=== PATIENT | female | born 1965 | race Caucasian/White ===

== ENCOUNTER 2020-03-12 13:19 | Outpatient (CLI) | payer OTHER, SELFPAY ==
--- NOTE | ~2020-03-12 | US_ITS ---
EXAMINATION: US venous doppler LE RT DATE: 03/12/2020 13:58 INDICATION: Right lower limb redness and swelling TECHNIQUE: Ellington scale images without and with compression and Doppler images of the right lower extre mity veins were obtained. COMPARISON: 07/22/2015 FINDINGS: The right common femoral vein, profunda femoral vein, femoral vein, popliteal vein, peronea l trunk, posterior tibial veins, and greater saphenous vein are patent. IMPRESSION: 1. Patent right lower extremity veins. No evidence of deep venous thrombosis. Reviewed, dictated and finalized at location A.
== END 2020-03-12 13:20 | disposition home or self-care (01) ==
PROVIDERS: PCP Family Medicine; Visit Provider Podiatrist Foot & Ankle Surgery
DX: M79.661 Pain in right lower leg (principal)
CPT/HCPCS: 93971

== ENCOUNTER 2020-04-28 07:18 | Outpatient (CLI) | payer OTHER, SELFPAY ==
--- NOTE | ~2020-04-28 | MM_ITS ---
EXAMINATION: MM screening pinky BI w dahiana HISTORY: Screening mammogram TECHNIQUE: Craniocaudal and mediolateral oblique 3-D tomosynthesis images were obtained and synthetic 2-D images were generated. CAD analysis was submitted and interpreted. COMPARISON: 04/23/2019, 04/19/2018, 04/14/2017 bilateral digital screening mammogram examinations BREAST PARENCHYMAL COMPOSITION: The breasts are almost entirely fatty. FINDINGS: There is no evidence of suspicious mass, calcification, or architectural distortion to sugg est malignancy in either breast. There has been no suspicious interval change. IMPRESSION: 1. No mammographic evidence of malignancy. 2. Recommend routine screening mammography in one year. BI-RADS Category 1: Negative Reviewed, dictated and finalized at location A.
== END 2020-04-28 07:19 | disposition home or self-care (01) ==
LOC: ANHIMG 07:20
PROVIDERS: PCP Family Medicine; Visit Provider Obstetrics & Gynecology
DX: Z12.31 Encounter for screening mammogram for malignant neoplasm of breast (principal)
CPT/HCPCS: 77063; 77067

== ENCOUNTER 2021-03-24 09:33 | Outpatient (CLI) | payer OTHER, SELFPAY ==
--- NOTE | 2021-03-24 09:46 | EST_ITS ---
Patient Info Name: Chrissy Henderson Age: 55 years : 1965 Gender: Female Ht: 66 in Wt: 240 lbs BSA: 2.30 m2 HR: 66 bpm BP: 124 / 52 mmHg Heart Rhythm: Sinus Rhythm Exam Date: 03/24/2021 10:00 AM Exam Location: [facility] Patient Status: Outpatient Admit Date: 03/24/2021 Staff Ordering Physician: Jihan Hughes NP Attending Provider: Jihan Hughes NP Exercise Technologist: Erica Beaver CT Exercise Physician: Dusty Meyer DO Exam Type: CA stress test treadmill Study Info An exercise stress test was performed. Summary 1. 1. Negative Gene exercise stress test for ischemic ST changes by ECG criteria. 2. 2. Reduced functional capacity, achieving 7 METs of workload. 3. 3. Appropriate HR response to exercise. 4. 4. Appropriate HR recovery at 1 minute post exercise. 5. 5. No imaging with stress testing. 6. 6. Patient informed of the above results. Protocol: [facility] ECG Details Stage: REST Duration (min): 1 min : 8 sec Speed (mph): 0.0 Grade (%): 0 HR (bpm): 69 SBP (mmHg): 124 DBP (mmHg): 52 METS: --- Stage: REST Duration (min): 8 min : 52 sec Speed (mph): 0.0 Grade (%): 0 HR (bpm): 83 SBP (mmHg): 124 DBP (mmHg): 52 METS: --- Stage: STAGE 1 Duration (min): 1 min : 0 sec Speed (mph): 1.7 Grade (%): 10 HR (bpm): 108 SBP (mmHg): 124 DBP (mmHg): 52 METS: --- Stage: STAGE 1 Duration (min): 2 min : 0 sec Speed (mph): 1.7 Grade (%): 10 HR (bpm): 117 SBP (mmHg): 124 DBP (mmHg): 52 METS: --- Stage: STAGE 1 Duration (min): 3 min : 0 sec Speed (mph): 1.7 Grade (%): 10 HR (bpm): 115 SBP (mmHg): 154 DBP (mmHg): 104 METS: --- Stage: STAGE 2 Duration (min): 1 min : 0 sec Speed (mph): 2.5 Grade (%): 12 HR (bpm): 136 SBP (mmHg): 154 DBP (mmHg): 104 METS: --- Stage: STAGE 2 Duration (min): 2 min : 0 sec Speed (mph): 2.5 Grade (%): 12 HR (bpm): 145 SBP (mmHg): 118 DBP (mmHg): 59 METS: --- Stage: STAGE 2 Duration (min): 3 min : 0 sec Speed (mph): 2.5 Grade (%): 12 HR (bpm): 152 SBP (mmHg): 128 DBP (mmHg): 56 METS: --- Stage: STAGE 3 Duration (min): 0 min : 6 sec Speed (mph): 3.4 Grade (%): 14 HR (bpm): 152 SBP (mmHg): 128 DBP (mmHg): 56 METS: --- Stage: RECOVERY Duration (min): 0 min : 53 sec Speed (mph): 0.0 Grade (%): 0 HR (bpm): 136 SBP (mmHg): 130 DBP (mmHg): 52 METS: --- Stage: RECOVERY Duration (min): 1 min : 53 sec Speed (mph): 0.0 Grade (%): 0 HR (bpm): 118 SBP (mmHg): 130 DBP (mmHg): 52 METS: --- Stage: RECOVERY Duration (min): 2 min : 53 sec Speed (mph): 0.0 Grade (%): 0 HR (bpm): 103 SBP (mmHg): 130 DBP (mmHg): 52 METS: --- Stage: RECOVERY Duration (min): 3 min :
== END 2021-03-24 09:34 | disposition home or self-care (01) ==
PROVIDERS: PCP Family Medicine; Visit Provider Nurse Practitioner
DX: R42 Dizziness and giddiness (principal)
CPT/HCPCS: 93017

== ENCOUNTER 2021-04-30 07:51 | Outpatient (CLI) | payer OTHER, SELFPAY ==
--- NOTE | ~2021-04-30 | MM_ITS ---
EXAMINATION: MM screening pinky BI w dahiana HISTORY: Screening mammogram TECHNIQUE: Craniocaudal and mediolateral oblique 3-D tomosynthesis images were obtained and synthetic 2-D images were generated. CAD analysis was submitted and interpreted. COMPARISON: 04/08/2020, 04/23/2019, 04/19/2018 bilateral digital screening mammogram examinations BREAST PARENCHYMAL COMPOSITION: The breasts are almost entirely fatty. A surgical FINDINGS: There is no evidence of suspicious mass, calcification, or architectural distortion to sugg est malignancy in either breast. There has been no suspicious interval change. IMPRESSION: 1. No mammographic evidence of malignancy. 2. Recommend routine screening mammography in one year. BI-RADS Category 1: Negative Reviewed, dictated and finalized at location A.
== END 2021-04-30 07:52 | disposition home or self-care (01) ==
LOC: ANHIMG 07:53
PROVIDERS: PCP Family Medicine; Visit Provider Obstetrics & Gynecology
DX: Z12.31 Encounter for screening mammogram for malignant neoplasm of breast (principal)
CPT/HCPCS: 77063; 77067

== ENCOUNTER 2022-06-14 08:44 | Outpatient (CLI) | payer OTHER, SELFPAY ==
--- NOTE | ~2022-06-14 | MM_ITS ---
EXAMINATION: MM screening pinky BI w dahiana HISTORY: Screening mammogram TECHNIQUE: Craniocaudal and mediolateral oblique 3-D tomosynthesis images were obtained and synthetic 2-D images were generated. CAD analysis was submitted and interpreted. COMPARISON: 04/30/2021, 04/28/2020, 04/23/2019 bilateral screening mammogram examinations BREAST PARENCHYMAL COMPOSITION: The breasts are almost entirely fatty. FINDINGS: There is no evidence of suspicious mass, calcification, or architectural distortion to sugg est malignancy in either breast. There has been no suspicious interval change. IMPRESSION: 1. No mammographic evidence of malignancy. 2. Recommend routine screening mammography in one year. BI-RADS Category 1: Negative Reviewed, dictated and finalized at location A. OR UX DESIGNER
== END 2022-06-14 08:45 | disposition home or self-care (01) ==
LOC: ANHIMG 08:47
PROVIDERS: PCP Family Medicine; Visit Provider Obstetrics & Gynecology
DX: Z12.31 Encounter for screening mammogram for malignant neoplasm of breast (principal)
CPT/HCPCS: 77063; 77067

== ENCOUNTER 2022-12-02 08:01 | Emergency (ER) | payer OTHER, SELFPAY ==
--- NOTE | 2022-12-02 08:06 | ED.EYEPROB ---
HPI - Eye Problem General Chief complaint: Eye Problems Stated complaint: EYE REDNESS Source: patient and RN notes reviewed History of Present Illness HPI Narrative: 56 yo F presents to urgent care with complaints of right eye irritation and gooping. Pt states she began having symptoms 2 days ago and yesterday afternoon, the symptoms worsened. Pt reports waking up with her eye matted. Denies any visual disturbance or eye pain. Pt does not wear contacts. Related Data Home Medications Medication Instructions Recorded Confirmed acetaminophen 500 mg tablet 500 mg PO Q6H PRN Pain, Mild 01/09/20 12/02/22 (Tylenol Extra Strength) vilazodone 40 mg tablet (Viibryd) 40 mg PO DAILY 01/28/21 12/02/22 dicyclomine 20 mg tablet 20 mg PO BID PRN Cramps 08/17/22 12/02/22 esomeprazole magnesium 20 mg 20 mg PO DAILY 08/17/22 12/02/22 capsule,delayed release (Nexium) meloxicam 15 mg tablet 15 mg PO DAILY 08/17/22 12/02/22 ondansetron HCl 8 mg tablet 8 mg PO .COMPLEX PRN Nausea 08/17/22 12/02/22 trazodone 50 mg tablet 200 mg PO QHS 08/17/22 12/02/22 Allergies Allergy/AdvReac Type Severity Reaction Status Date / Time amoxicillin Allergy Unknown Skin Verified 12/02/22 08:08 irritation iodine Allergy Unknown Skin Verified 12/02/22 08:08 irritation Contrast Media Allergy Severe HIVES, RASH Uncoded 12/02/22 08:08 Review of Systems Review of Systems: Pertinent positives and pertinent negatives per HPI. [facility] Past Medical History Medical History Aerophagia 03/2001 Anxiety Chronic low back pain Dyslipidemia Fibromyalgia GERD (gastroesophageal reflux disease) Insomnia Intractable migraine without aura and without status migrainosus Irritable bowel syndrome with diarrhea Vitamin D deficiency Surgical History Surgical History H/O total hysterectomy 2017 History of total left hip replacement 2018 History of total replacement of right hip 2009 Family History Family History Father Family history of pancreatic cancer, Onset Age: 82 Hypertension Family history of osteoarthritis Family history of coronary artery disease Mother Hypertension Patient's mother is in good health Family history of arthritis Social History Social History Smoking status: Never smoker Second hand tobacco smoke exposure: No Alcohol intake: current Alcohol use details: small glass of wine 3 times a year, maybe Substance use: never Substance use type: does not use Lack of Transportation: No Lack of Food: Never True Current Housing: I Have Housing Concerned About Future Housing: No Difficulty Paying Gas/Electric Bills: No Difficulty Paying for Meds: No Currently Unemployed: No Education: Bachelor's Degree Difficulty w/ Childcare or Family Care: No Living arrangements: with family Occupation/Education: retired Gender identity (if verbalized by the patient): Female Agree to blood products: Yes Comments At the time of my signature, I reviewed and agree with the nursing past medical, surgical, social, and family history. There is no relevant family history pertinent to the patient complaint. Exam Narrative: GENERAL: This is a well-nourished, well-developed patient, in no apparent distress. HEAD: normocephalic, atraumatic. EYES: PERRL. Sclera clear/white. Vision is grossly intact. Right lower conjunctivae injected with mild sclera erythema. EARS: External ears normal, auditory canals clear and without drainage, TMs normal without perforation. Hearing grossly intact. NOSE: External nose normal with no obvious nasal discharge, nares without redness, no rhinorrhea. THROAT: Mucous membranes moist, posterior pharynx clear. NECK: Neck supple, non-tender without lymphadenopathy, masses
[2022-12-02 08:08] VITALS: BP 116/57; PULSE 73; RESP 16; TEMP 36.3; O2SAT 99
[2022-12-02 08:11] VITALS: BP 116/57; PULSE 73; RESP 16; TEMP 36.3; O2SAT 99
== END 2022-12-02 08:19 | disposition home or self-care (01) ==
PROVIDERS: Emergency Provider Nurse Practitioner Family; PCP Family Medicine
DX: H10.9 Unspecified conjunctivitis (principal); E78.5 Hyperlipidemia, unspecified; M79.7 Fibromyalgia; K21.9 Gastro-esophageal reflux disease without esophagitis; Z90.710 Acquired absence of both cervix and uterus; Z96.653 Presence of artificial knee joint, bilateral
CPT/HCPCS: 99213; G0463

== ENCOUNTER → 2023-04-26 08:58 | Outpatient (REF) | payer OTHER, SELFPAY | LOC: ANHLAB 08:58 | PROVIDERS: PCP Family Medicine; Visit Provider Plastic Surgery | DX: L72.0 Epidermal cyst (principal) | CPT/HCPCS: 88305 ==

== ENCOUNTER 2023-09-23 08:37 | Outpatient (CLI) | payer OTHER, SELFPAY ==
--- NOTE | ~2023-09-23 | MM_ITS ---
EXAMINATION: MM screening pinky BI w dahiana HISTORY: Screening mammogram TECHNIQUE: Craniocaudal and mediolateral oblique 3-D tomosynthesis images were obtained and synthetic 2-D images were generated. CAD analysis was submitted and interpreted. COMPARISON: 06/14/2022, 04/30/2021 bilateral screening mammogram examinations BREAST PARENCHYMAL COMPOSITION: The breasts are almost entirely fatty. FINDINGS: There is no evidence of suspicious mass, calcification, or architectural distortion to sugg est malignancy in either breast. There has been no suspicious interval change. IMPRESSION: 1. No mammographic evidence of malignancy. 2. Recommend routine screening mammography in one year. BI-RADS Category 1: Negative Reviewed, dictated and finalized at location B. SIONS ENGINEER
== END 2023-09-23 08:38 | disposition home or self-care (01) ==
PROVIDERS: PCP Family Medicine; Visit Provider Obstetrics & Gynecology
DX: Z12.31 Encounter for screening mammogram for malignant neoplasm of breast (principal)
CPT/HCPCS: 77063; 77067

== ENCOUNTER 2024-06-04 01:58 | Day surgery (SDC) | payer OTHER, SELFPAY ==
[2024-05-22 14:44] VITALS: BMI 40.5
--- NOTE | 2024-06-03 14:59 | WPDANESEPP ---
Anes - Eval Pre Procedure Procedure: Operation Date: 06/04/24 09:30 Proposed Procedures p Screening Colonoscopy - Jonathon Sosa MD Date/Time: 06/03/24 14:59 Pre Op Diagnosis: neopleasm screening Patient Data Age: 58 Gender: F Height: 1.68 m Weight: 114 kg Allergies Allergy/AdvReac Type Severity Reaction Status Date / Time Iodinated Contrast Media Allergy Severe Hives, RASH Verified 06/01/24 07:49 amoxicillin Allergy Unknown Skin Verified 05/22/24 14:28 irritation iodine Allergy Unknown Skin Verified 05/22/24 14:28 irritation Slkqash-[id number]-WlC Reductase AdvReac Mild Muscle Pain Verified 05/22/24 14:28 Inhibitor Home Medications Medication Instructions Recorded Confirmed Type acetaminophen 500 mg tablet 500 mg PO Q6H PRN Pain, Mild 01/09/20 05/22/24 History (Tylenol Extra Strength) vilazodone 40 mg tablet (Viibryd) 40 mg PO DAILY 01/28/21 05/22/24 History cyclobenzaprine 10 mg tablet 5 mg PO TID PRN muscle spasm #30 02/21/23 03/01/24 Rx tabs hydroxyzine HCl 25 mg tablet 25 mg PO QID PRN anxiety #120 tabs 09/27/23 05/22/24 Rx esomeprazole magnesium 20 mg 40 mg PO DAILY #90 caps 03/01/24 05/22/24 Rx capsule,delayed release (Nexium) meloxicam 15 mg tablet 15 mg PO DAILY #90 tabs 03/01/24 05/22/24 Rx cetirizine 10 mg tablet (Zyrtec) 10 mg PO DAILY PRN seasonal 05/22/24 05/22/24 History allergies pseudoephedrine HCl 30 mg tablet 30 mg PO DAILY PRN seasonal 05/22/24 05/22/24 History (Sudafed) allergies tramadol 50 mg tablet 100 mg PO DAILY 05/22/24 05/22/24 History Patient hx anesthesia problems: none Family hx anesthesia problems: none Results Review: All pre-operative results and documents have been reviewed as part of the pre-operative evaluation. COUNTS INCLUDE 234 BEDS AT [facility] Past Medical History Medical History Aerophagia 03/2001 Anxiety Chronic low back pain Dyslipidemia Fibromyalgia GERD (gastroesophageal reflux disease) Insomnia Intractable migraine without aura and without status migrainosus Irritable bowel syndrome with diarrhea Vitamin D deficiency Surgical History Surgical History H/O total hysterectomy 2017 History of total left hip replacement 2018 History of total replacement of right hip 2009 Family History Family History Father Family history of pancreatic cancer, Onset Age: 82 Hypertension Family history of osteoarthritis Family history of coronary artery disease Mother Hypertension Patient's mother is in good health Family history of arthritis Social History Social History Smoking status: Never smoker Second hand tobacco smoke exposure: No Alcohol intake: never Substance use: never Substance use type: does not use Lack of Transportation: No Lack of Food: Never True Current Housing: I Have Housing Concerned About Future Housing: No Difficulty Paying Gas/Electric Bills: No Difficulty Paying for Meds: No Currently Unemployed: No Education: Bachelor's Degree Difficulty w/ Childcare or Family Care: No Living arrangements: with family Occupation/Education: retired Gender identity (if verbalized by the patient): Female Spiritual care concerns: No Agree to blood products: Yes Exam Day of Procedure 06/03/24 14:59
[2024-06-04 08:26] VITALS: BP 129/56; PULSE 70; RESP 20; TEMP 36.1; O2SAT 99
[2024-06-04] MEDS: LACTATED RINGERS 1,000 ML 150 ML IV CONT (08:47)
--- NOTE | 2024-06-04 09:20 | P.PNAN_ITS ---
Anes - Initial Pre Proc Eval Procedure: Operation Date: 06/04/24 09:30 Proposed Procedures p Screening Colonoscopy - Jonathon Sosa MD Date/Time: 06/04/24 09:20 Surgeon: Jonathon Sosa MD Pre Op Diagnosis: neopleasm screening Patient Data Age: 58 Gender: F Height: 1.68 m Weight: 117 kg Last Vital Signs Temp 36.1 C L 06/04/24 08:26 Pulse 70 06/04/24 08:26 Resp 20 06/04/24 08:26 BP 129/56 L 06/04/24 08:26 Pulse Ox 99 06/04/24 08:26 O2 Del Method Room Air 06/04/24 08:26 Allergies Allergy/AdvReac Type Severity Reaction Status Date / Time Iodinated Contrast Media Allergy Severe Hives, RASH Verified 06/04/24 08:24 amoxicillin Allergy Unknown Skin Verified 06/04/24 08:24 irritation iodine Allergy Unknown Skin Verified 06/04/24 08:24 irritation Kbjzsrb-WEX-QlL Reductase AdvReac Mild Muscle Pain Verified 06/04/24 08:24 Inhibitor Home Medications Medication Instructions Recorded Confirmed Type acetaminophen 500 mg tablet 500 mg PO Q6H PRN Pain, Mild 01/09/20 06/04/24 History (Tylenol Extra Strength) vilazodone 40 mg tablet (Viibryd) 40 mg PO DAILY 01/28/21 06/04/24 History cyclobenzaprine 10 mg tablet 5 mg PO TID PRN muscle spasm #30 02/21/23 06/04/24 Rx tabs hydroxyzine HCl 25 mg tablet 25 mg PO QID PRN anxiety #120 tabs 09/27/23 06/04/24 Rx esomeprazole magnesium 20 mg 40 mg PO DAILY #90 caps 03/01/24 06/04/24 Rx capsule,delayed release (Nexium) meloxicam 15 mg tablet 15 mg PO DAILY #90 tabs 03/01/24 06/04/24 Rx cetirizine 10 mg tablet (Zyrtec) 10 mg PO DAILY PRN seasonal 05/22/24 06/04/24 History allergies pseudoephedrine HCl 30 mg tablet 30 mg PO DAILY PRN seasonal 05/22/24 06/04/24 History (Sudafed) allergies tramadol 50 mg tablet 100 mg PO DAILY 05/22/24 06/04/24 History Patient hx anesthesia problems: none Family hx anesthesia problems: none Results Review: All pre-operative results and documents have been reviewed as part of the pre- operative evaluation. [facility] Past Medical History Medical History Aerophagia 03/2001 Anxiety Chronic low back pain Dyslipidemia Fibromyalgia GERD (gastroesophageal reflux disease) Insomnia Intractable migraine without aura and without status migrainosus Irritable bowel syndrome with diarrhea Vitamin D deficiency Surgical History Surgical History H/O total hysterectomy 2017 History of total left hip replacement 2018 History of total replacement of right hip 2009 Family History Family History Father Family history of pancreatic cancer, Onset Age: 82 Hypertension Family history of osteoarthritis Family history of coronary artery disease Mother Hypertension Patient's mother is in good health Family history of arthritis Social History Social History Smoking status: Never smoker Second hand tobacco smoke exposure: No Alcohol intake: never Substance use: never Substance use type: does not use Lack of Transportation: No Lack of Food: Never True Current Housing: I Have Housing Concerned About Future Housing: No Difficulty Paying Gas/Electric Bills: No Difficulty Paying for Meds: No Currently Unemployed: No Education: Bachelor's Degree Difficulty w/ Childcare or Family Care: No Living arrangements: with family Occupation/Education: retired Gender identity (if verbalized by the patient): Female Spiritual care concerns: No Agree to blood products: Yes Anes - Eval Final PreProcedure Day of Procedure 06/04/24 09:20 Patient weight: morbidly obese Heart: regular rate and rhythm Lungs: clear to auscultation Airway: Mallampati scale class II Neurological: alert and oriented Last oral intake: >/= 8 hours ASA classification: III Emergent: no Anesthetic plan: proceed Anesthesia type and monitoring: general GIVS and standard monitoring Results Review: All pre-operative results and documents have been reviewed as part of the pre- operative evaluation. Informed Consent: The patient's anesthetic plan and its attendant risks and benefits were discussed with the patient/family/POA. Questions were solicited and answers provided to the satisfaction of the patient/family/POA.
--- NOTE | 2024-06-04 09:35 | PM.IMHP ---
H&P: HPI History of Present Illness Date/Time: 06/04/24 09:35 Chief Complaint: Family history of colon cancer and polyps Narrative: This patient has family history of colorectal cancer. Her grandmother on the maternal side had colon cancer, and all her siblings and a daughter had colonic polyps. Review of Systems Review of Systems: All systems reviewed & are unremarkable except as noted in HPI and below PMFSH Past Medical History Medical History Aerophagia 03/2001 Anxiety Chronic low back pain Dyslipidemia Fibromyalgia GERD (gastroesophageal reflux disease) Insomnia Intractable migraine without aura and without status migrainosus Irritable bowel syndrome with diarrhea Vitamin D deficiency Surgical History Surgical History H/O total hysterectomy 2017 History of total left hip replacement 2018 History of total replacement of right hip 2009 Family History Family History Father Family history of pancreatic cancer, Onset Age: 82 Hypertension Family history of osteoarthritis Family history of coronary artery disease Mother Hypertension Patient's mother is in good health Family history of arthritis Social History Social History Smoking status: Never smoker Second hand tobacco smoke exposure: No Alcohol intake: never Substance use: never Substance use type: does not use Lack of Transportation: No Lack of Food: Never True Current Housing: I Have Housing Concerned About Future Housing: No Difficulty Paying Gas/Electric Bills: No Difficulty Paying for Meds: No Currently Unemployed: No Education: Bachelor's Degree Difficulty w/ Childcare or Family Care: No Living arrangements: with family Occupation/Education: retired Gender identity (if verbalized by the patient): Female Spiritual care concerns: No Agree to blood products: Yes Meds Home Medications and Allergies Home Medications Medication Instructions Recorded Confirmed Type acetaminophen 500 mg tablet 500 mg PO Q6H PRN Pain, Mild 01/09/20 06/04/24 History (Tylenol Extra Strength) vilazodone 40 mg tablet (Viibryd) 40 mg PO DAILY 01/28/21 06/04/24 History cyclobenzaprine 10 mg tablet 5 mg PO TID PRN muscle spasm #30 02/21/23 06/04/24 Rx tabs hydroxyzine HCl 25 mg tablet 25 mg PO QID PRN anxiety #120 tabs 09/27/23 06/04/24 Rx esomeprazole magnesium 20 mg 40 mg PO DAILY #90 caps 03/01/24 06/04/24 Rx capsule,delayed release (Nexium) meloxicam 15 mg tablet 15 mg PO DAILY #90 tabs 03/01/24 06/04/24 Rx cetirizine 10 mg tablet (Zyrtec) 10 mg PO DAILY PRN seasonal 05/22/24 06/04/24 History allergies pseudoephedrine HCl 30 mg tablet 30 mg PO DAILY PRN seasonal 05/22/24 06/04/24 History (Sudafed) allergies tramadol 50 mg tablet 100 mg PO DAILY 05/22/24 06/04/24 History Allergies Allergy/AdvReac Type Severity Reaction Status Date / Time Iodinated Contrast Media Allergy Severe Hives, RASH Verified 06/04/24 08:24 amoxicillin Allergy Unknown Skin Verified 06/04/24 08:24 irritation iodine Allergy Unknown Skin Verified 06/04/24 08:24 irritation Risdkeu-LEL-OjD Reductase AdvReac Mild Muscle Pain Verified 06/04/24 08:24 Inhibitor Vital Signs Vital Signs - 24 hr 06/04/24 08:26 Temperature 96.9 F L Pulse Rate 70 Respiratory Rate 20 Blood Pressure 129/56 L Pulse Oximetry 99 Oxygen Delivery Room Air Assessment and Plan Assessment and plan (1) Family history of polyps in the colon: Code(s): Z83.719 - Family history of colon polyps, unspecified Status: Acute Plan The patient is deemed a good candidate for the procedure. Consent signed. Will proceed.
[2024-06-04 10:01] VITALS: BP 136/77; PULSE 65; RESP 19; O2SAT 98
[2024-06-04 10:11] VITALS: BP 130/68; PULSE 66; RESP 18; O2SAT 99
[2024-06-04 10:21] VITALS: BP 138/72; PULSE 66; RESP 20; O2SAT 100
== END 2024-06-04 10:27 | disposition home or self-care (01) ==
PROVIDERS: PCP Family Medicine; Referring Provider Family Medicine; Visit Provider Internal Medicine Gastroenterology
PROC: 0DJD8ZZ Inspection of Lower Intestinal Tract, Via Natural or Artificial Opening Endoscopic (ICD-10-PCS; CPT 45378; principal; 2024-06-04 09:30)
DX: Z12.11 Encounter for screening for malignant neoplasm of colon (principal); E78.5 Hyperlipidemia, unspecified; K21.9 Gastro-esophageal reflux disease without esophagitis; E55.9 Vitamin D deficiency, unspecified; K58.0 Irritable bowel syndrome with diarrhea; G47.00 Insomnia, unspecified; F41.9 Anxiety disorder, unspecified; G89.29 Other chronic pain; M54.50 Low back pain, unspecified; G43.019 Migraine without aura, intractable, without status migrainosus; E66.01 Morbid (severe) obesity due to excess calories; Z68.41 Body mass index [BMI] 40.0-44.9, adult; Z79.891 Long term (current) use of opiate analgesic; Z98.890 Other specified postprocedural states; Z86.0100 Personal history of colon polyps, unspecified; Z83.719 Family history of colon polyps, unspecified; Z80.0 Family history of malignant neoplasm of digestive organs; Z82.49 Family history of ischemic heart disease and other diseases of the circulatory system
CPT/HCPCS: 45378; J2003; J2704; J7120

== ENCOUNTER 2024-06-26 10:24 | Outpatient (CLI) | payer OTHER, SELFPAY ==
--- NOTE | ~2024-06-26 | US_ITS ---
Limited ABDOMINAL ULTRASOUND (Doppler ultrasound interrogation techniques used as needed for this exsohail m.) Ordering provider: Toya Carlson APRN History: . R09.A2 - Foreign body sensation, throat . Comparison: None. FINDINGS: PANCREAS: Normal echotexture and size. PORTAL VEIN: Hepatopedal flow demonstrated. LIVER: Normal size. fat infiltration. No focal hepatic lesions or perihepatic fluid collections are i dentified. BILIARY DUCTS: No intra or extrahepatic biliary dilation. Common bile duct measures 3 mm in diameter which is normal for patient's age. GALLBLADDER: Stone measuring 2.2 x 0.8 x 1.7 cm is seen near to the neck of the gallbladder. No slud ge, gallbladder wall thickening or pericholecystic fluid. Wall thicknesses 0.4 cm. Negative sonograph ic Singh's sign. Aorta: Normal. IVC: Normal. FREE FLUID: None visualized within the upper abdomen. IMPRESSION: Cholelithiasis. Fat infiltration. Otherwise, normal limited abdominal ultrasound. Reviewed, dictated and finalized at location A. DEVELOPMENT INTERN IMPRESSION: Cholelithiasis. Fat infiltration. Otherwise, normal limited abdominal ultrasoun d.
== END 2024-06-26 10:25 | disposition home or self-care (01) ==
PROVIDERS: PCP Family Medicine; Visit Provider Nurse Practitioner Family
DX: R09.A2 Foreign body sensation, throat (principal); Z80.0 Family history of malignant neoplasm of digestive organs; K21.9 Gastro-esophageal reflux disease without esophagitis; R10.10 Upper abdominal pain, unspecified; K80.20 Calculus of gallbladder without cholecystitis without obstruction
CPT/HCPCS: 76705

== ENCOUNTER 2024-07-11 03:09 | Day surgery (SDC) | payer OTHER, SELFPAY ==
[2024-06-20 13:10] VITALS: BMI 41.6
[2024-07-11 11:44] VITALS: BP 164/70; PULSE 73; RESP 19; TEMP 36.3; O2SAT 98; BMI 41.6
--- NOTE | 2024-07-11 12:04 | WPDANESEPPF ---
Anes - Initial Pre Proc Eval Procedure: Operation Date: 07/11/24 12:30 Proposed Procedures p Esophagogastroduodenoscopy - Jonathon Sosa MD Date/Time: 07/11/24 12:04 Surgeon: Jonathon Sosa MD Pre Op Diagnosis: Cough, Dysphonia, GERD, foreign body sensation Patient Data Age: 58 Gender: F Height: 1.68 m Weight: 117 kg Last Vital Signs Temp 36.3 C L 07/11/24 11:44 Pulse 73 07/11/24 11:44 Resp 19 07/11/24 11:44 BP 164/70 H 07/11/24 11:44 Pulse Ox 98 07/11/24 11:44 O2 Del Method Room Air 07/11/24 11:44 Allergies Allergy/AdvReac Type Severity Reaction Status Date / Time Iodinated Contrast Media Allergy Severe Hives, RASH Verified 07/11/24 11:40 amoxicillin Allergy Unknown Skin Verified 07/11/24 11:40 irritation iodine Allergy Unknown Skin Verified 07/11/24 11:40 irritation [id number] Reductase AdvReac Mild Muscle Pain Verified 07/11/24 11:40 Inhibitor Home Medications Medication Instructions Recorded Confirmed Type acetaminophen 500 mg tablet 500 mg PO Q6H PRN Pain, Mild 01/09/20 07/11/24 History (Tylenol Extra Strength) vilazodone 40 mg tablet (Viibryd) 40 mg PO DAILY 01/28/21 07/11/24 History cyclobenzaprine 10 mg tablet 5 mg PO TID PRN muscle spasm #30 02/21/23 07/11/24 Rx tabs hydroxyzine HCl 25 mg tablet 25 mg PO QID PRN anxiety #120 tabs 09/27/23 07/11/24 Rx esomeprazole magnesium 20 mg 40 mg PO DAILY #90 caps 03/01/24 07/11/24 Rx capsule,delayed release (Nexium) meloxicam 15 mg tablet 15 mg PO DAILY #90 tabs 03/01/24 07/11/24 Rx cetirizine 10 mg tablet (Zyrtec) 10 mg PO DAILY PRN seasonal 05/22/24 07/11/24 History allergies pseudoephedrine HCl 30 mg tablet 30 mg PO DAILY PRN seasonal 05/22/24 07/11/24 History (Sudafed) allergies tramadol 50 mg tablet 100 mg PO DAILY 05/22/24 07/11/24 History famotidine 20 mg tablet 20 mg PO QHS #30 tabs 06/08/24 07/11/24 Rx Patient hx anesthesia problems: none Family hx anesthesia problems: none Results Review: All pre-operative results and documents have been reviewed as part of the pre-operative evaluation. [facility] Past Medical History Medical History Aerophagia 03/2001 Anxiety Chronic low back pain Dyslipidemia Fibromyalgia GERD (gastroesophageal reflux disease) Insomnia Intractable migraine without aura and without status migrainosus Irritable bowel syndrome with diarrhea Vitamin D deficiency Surgical History Surgical History H/O total hysterectomy 2017 History of total left hip replacement 2018 History of total replacement of right hip 2009 Family History Family History Father Family history of pancreatic cancer, Onset Age: 82 Hypertension Family history of osteoarthritis Family history of coronary artery disease Mother Hypertension Patient's mother is in good health Family history of arthritis Social History Social History Smoking status: Never smoker Second hand tobacco smoke exposure: No Alcohol intake: never Substance use: never Substance use type: does not use Lack of Transportation: No Lack of Food: Never True Current Housing: I Have Housing Concerned About Future Housing: No Difficulty Paying Gas/Electric Bills: No Difficulty Paying for Meds: No Currently Unemployed: No Education: Bachelor's Degree Difficulty w/ Childcare or Family Care: No Living arrangements: with family Occupation/Education: retired Gender identity (if verbalized by the patient): Female Spiritual care concerns: No Agree to blood products: Yes Anes - Eval Final PreProcedure Day of Procedure 07/11/24 12:04 Patient weight: morbidly obese Heart: regular rate and rhythm Lungs: clear to auscultation Airway: Mallampati scale class III Neurological: alert and oriented Last oral intake: >/= 8 hours ASA classification: III Emergent: no Anesthetic plan: proceed Anesthesia type and monitoring: general GIVS and standard monitoring Results Review: All pre-operative results and documents have been reviewed as part of the pre-operative evaluation. Informed Consent: The patient's anesthetic plan and its attendant risks and benefits were discussed with the patient/family/POA. Questions were solicited and answers provided to the satisfaction of the patient/family/POA.
[2024-07-11] MEDS: LACTATED RINGERS 1,000 ML 150 ML IV CONT (12:20)
--- NOTE | 2024-07-11 12:37 | PM.IMHP ---
H&P: HPI History of Present Illness Date/Time: 07/11/24 12:37 Chief Complaint: Heartburn Narrative: this patient has been suffering from more heartburn for several years, and is having almost daily episodes, despite taking 2 tablets of Nexium in the morning and 1 famotidine at night. There is no history of dysphagia, hematemesis, nausea vomiting. Review of Systems Review of Systems: All systems reviewed & are unremarkable except as noted in HPI and below PMFSH Past Medical History Medical History Aerophagia 03/2001 Anxiety Chronic low back pain Dyslipidemia Fibromyalgia GERD (gastroesophageal reflux disease) Insomnia Intractable migraine without aura and without status migrainosus Irritable bowel syndrome with diarrhea Vitamin D deficiency Surgical History Surgical History H/O total hysterectomy 2017 History of total left hip replacement 2018 History of total replacement of right hip 2009 Family History Family History Father Family history of pancreatic cancer, Onset Age: 82 Hypertension Family history of osteoarthritis Family history of coronary artery disease Mother Hypertension Patient's mother is in good health Family history of arthritis Social History Social History Smoking status: Never smoker Second hand tobacco smoke exposure: No Alcohol intake: never Substance use: never Substance use type: does not use Lack of Transportation: No Lack of Food: Never True Current Housing: I Have Housing Concerned About Future Housing: No Difficulty Paying Gas/Electric Bills: No Difficulty Paying for Meds: No Currently Unemployed: No Education: Bachelor's Degree Difficulty w/ Childcare or Family Care: No Living arrangements: with family Occupation/Education: retired Gender identity (if verbalized by the patient): Female Spiritual care concerns: No Agree to blood products: Yes Meds Home Medications and Allergies Home Medications Medication Instructions Recorded Confirmed Type acetaminophen 500 mg tablet 500 mg PO Q6H PRN Pain, Mild 01/09/20 07/11/24 History (Tylenol Extra Strength) vilazodone 40 mg tablet (Viibryd) 40 mg PO DAILY 01/28/21 07/11/24 History cyclobenzaprine 10 mg tablet 5 mg PO TID PRN muscle spasm #30 02/21/23 07/11/24 Rx tabs hydroxyzine HCl 25 mg tablet 25 mg PO QID PRN anxiety #120 tabs 09/27/23 07/11/24 Rx esomeprazole magnesium 20 mg 40 mg PO DAILY #90 caps 03/01/24 07/11/24 Rx capsule,delayed release (Nexium) meloxicam 15 mg tablet 15 mg PO DAILY #90 tabs 03/01/24 07/11/24 Rx cetirizine 10 mg tablet (Zyrtec) 10 mg PO DAILY PRN seasonal 05/22/24 07/11/24 History allergies pseudoephedrine HCl 30 mg tablet 30 mg PO DAILY PRN seasonal 05/22/24 07/11/24 History (Sudafed) allergies tramadol 50 mg tablet 100 mg PO DAILY 05/22/24 07/11/24 History famotidine 20 mg tablet 20 mg PO QHS #30 tabs 06/08/24 07/11/24 Rx Allergies Allergy/AdvReac Type Severity Reaction Status Date / Time Iodinated Contrast Media Allergy Severe Hives, RASH Verified 07/11/24 11:40 amoxicillin Allergy Unknown Skin Verified 07/11/24 11:40 irritation iodine Allergy Unknown Skin Verified 07/11/24 11:40 irritation Rikzjqb-[id number]-FyZ Reductase AdvReac Mild Muscle Pain Verified 07/11/24 11:40 Inhibitor Vital Signs Vital Signs - 24 hr 07/11/24 11:44 Temperature 97.4 F L Pulse Rate 73 Respiratory Rate 19 Blood Pressure 164/70 H Pulse Oximetry 98 Oxygen Delivery Room Air Exam Const: General: cooperative and healthy appearing Resp: Effort & Inspection: normal respiratory effort and able to speak in complete sentences Auscultation: clear to auscultation bilaterally Cardio: Rate: regular rate Rhythm: regular rhythm GI: Inspection: normal to inspection GI Palp: No No hepatosplenomegaly present Auscultation: normal bowel sounds Rectal Exam: deferred Skin: General skin exam: normal color Psych: Appearance: grossly normal Mental Status: mental status grossly normal Assessment and Plan Assessment and plan (1) GERD (gastroesophageal reflux disease): Code(s): K21.9 - Gastro-esophageal reflux disease without esophagitis Status: Acute Assessment and Plan: The patient is deemed a good candidate for the procedure. Consent signed. Will proceed.
[2024-07-11 12:53] VITALS: BP 143/73; PULSE 71; RESP 15; O2SAT 97
[2024-07-11 13:03] VITALS: BP 150/75; PULSE 64; RESP 24; O2SAT 99
[2024-07-11 13:13] VITALS: BP 149/74; PULSE 61; RESP 15; O2SAT 99
== END 2024-07-11 13:34 | disposition home or self-care (01) ==
PROVIDERS: PCP Family Medicine; Visit Provider Internal Medicine Gastroenterology
PROC: 0DJ08ZZ Inspection of Upper Intestinal Tract, Via Natural or Artificial Opening Endoscopic (ICD-10-PCS; CPT 43235; principal; 2024-07-11 12:30)
DX: K21.9 Gastro-esophageal reflux disease without esophagitis (principal); K44.9 Diaphragmatic hernia without obstruction or gangrene; K29.70 Gastritis, unspecified, without bleeding; E78.5 Hyperlipidemia, unspecified; G47.00 Insomnia, unspecified; K58.0 Irritable bowel syndrome with diarrhea; E55.9 Vitamin D deficiency, unspecified; F41.9 Anxiety disorder, unspecified; G89.29 Other chronic pain; M54.50 Low back pain, unspecified; G43.919 Migraine, unspecified, intractable, without status migrainosus; E66.01 Morbid (severe) obesity due to excess calories; Z68.41 Body mass index [BMI] 40.0-44.9, adult; Z79.891 Long term (current) use of opiate analgesic; Z98.890 Other specified postprocedural states; Z96.643 Presence of artificial hip joint, bilateral; Z80.0 Family history of malignant neoplasm of digestive organs; Z82.49 Family history of ischemic heart disease and other diseases of the circulatory system
CPT/HCPCS: 43235; 88305; J2003; J2704; J7120

== ENCOUNTER 2024-07-13 11:32 | Outpatient (CLI) | payer OTHER, SELFPAY ==
--- NOTE | ~2024-07-13 | NM_ITS ---
EXAMINATION: NM hepatobiliary wo pharm DATE: 07/13/2024 15:38 INDICATION: Upper abdominal pain, unspecified. COMPARISON: Ultrasound 06/26/2024 TECHNIQUE: 4.9 mCi Tc-99m mebrofenin (Choletec) was administered intravenously. Scintigraphic images of the abdomen were obtained for one hour. Then, the patient drank 8 oz Ensure, and imaging was cont inued for 60 minutes. FINDINGS: There is normal clearance of radiotracer from the blood pool. There is homogeneous tracer u ptake by the liver. Activity progresses to the bowel and gallbladder. Gallbladder ejection fraction (GBEF) was 4%. Note that with this technique, normal GBEF >= 33%. IMPRESSION: 1. Low gallbladder ejection fraction, consistent with gallbladder dysfunction and/or chronic cholecy stitis. Reviewed, dictated and finalized at location A. TAL GROWING TECHNICIAN IMPRESSION: 1. Low gallbladder ejection fraction, consistent with gallbladder dysfunction and/or chronic cholecystitis.
== END 2024-07-13 11:33 | disposition home or self-care (01) ==
PROVIDERS: PCP Family Medicine; Visit Provider Nurse Practitioner Family
DX: R10.10 Upper abdominal pain, unspecified (principal); K80.20 Calculus of gallbladder without cholecystitis without obstruction
CPT/HCPCS: 78226; A9537

== ENCOUNTER 2024-08-10 08:17 | Outpatient (CLI) | payer OTHER, SELFPAY ==
--- NOTE | 2024-08-10 08:25 | ECG_ITS ---
Test Date: 2024-08-10 08:50:27 Measurements Intervals [place] Rate: 72 P: 21 CO: 176 QRS: 25 QRSD: 81 T: 46 QT: 340 QTc: 372 Interpretive Statements SINUS RHYTHM No previous ECG available for comparison Electronically Signed On 08-13-2024 15:01:02 ACCOUNTS PAYABLE MANAGER by Colton Kuhn M.D.
[2024-08-10 10:17] LABS: Alanine Aminotransferase 20 U/L (6-35); Albumin Level 4.1 g/dL (3.5-5.1); Alkaline Phosphatase 89 U/L (38-126); Amylase 64 U/L (30-110); Aspartate Amino Transferase 25 U/L (14-36); Bilirubin,Total 0.5 mg/dL (0.2-1.3); Lipase 98 U/L (23-300)
== END 2024-08-10 08:18 | disposition home or self-care (01) ==
LOC: ANHSURGERY 08:21
PROVIDERS: PCP Family Medicine; Visit Provider Surgery
DX: Z01.818 Encounter for other preprocedural examination (principal); K80.10 Calculus of gallbladder with chronic cholecystitis without obstruction
CPT/HCPCS: 36415; 80076; 82150; 83690; 93005

== ENCOUNTER 2024-08-15 02:54 | Day surgery (SDC) | payer OTHER, SELFPAY ==
[2024-08-03 09:23] VITALS: BMI 40.7
--- NOTE | 2024-08-03 09:39 | SUR.PREOP ---
Report to the Outpatient Waiting Room, entrance under the green pavilion located off [facility], at time 1100 on date 08-15-23. Planned Procedure Time: 1300.? Time changes happen often and if your time is changed the preop area will call you the afternoon before. - You and your visitor will be asked to self-screen and do not enter if you have any COVID symptoms. Please call surgeon if you need to reschedule. - A mask is optional within the hospital at this time. Patients may have clear liquids (water, carbonated beverages, clear teas, apple juice) until 3 hours prior to surgery with a maximum of 20 ounces. - No food from midnight until time of surgery and no smoking. This includes no chewing gum, candy or mints. - Infants may have breast milk until 4 hours before surgery, formula 6 hours prior to surgery. - Children will be allowed to drink immediately following surgery.? If applicable, please bring a bottle or sippy cup to assist with drinking. Juice, water, soda, and popsicles are readily available.? For infants on formula, please bring formula the day of surgery.? Pacifiers are allowed. Take only the following medications with a SIP of water on the morning of surgery: hydroxazine, tramadol, vilazodone, cyclobenzaprine DO NOT STOP ANY OF YOUR OTHER PRESCRIPTION MEDICATIONS PRIOR TO SURGERY EXCEPT THE FOLLOWING Medications to discontinue per physician VITAMINS AND SUPPLIMENTS x 3 DAYS PRIOR TO PROCEDURE Date to take last dose AUGUST 11 Please no make-up, nail burkinan, hairspray, perfume, deodorant, or body powder the day of surgery.? No jewelry (including any body piercings) or valuables the day of surgery, leave them at home.? Please take a shower or bath the night before, or the morning of, surgery with an antibacterial soap.? Wear comfortable, loose fitting clothing.? Children are encouraged to wear pajamas. - Jewelry must be removed prior to entering the operating room.? Rings and piercings that are not removed may be cut off. - The hospital will not accept responsibility for valuables.? - Please leave all valuables, including medications, at home the day of surgery. If you are going home after surgery, a licensed dairy truck driver must drive you home.? - NO public transportation without another adult if you receive anesthesia. - We recommend that an adult stay with you for 24 hours following discharge. - We also recommend that you do not drive, make important decision, drink alcoholic beverages, or take any drugs that were not prescribed by your health care provider for at least 24 hours after your discharge time. For Pediatric surgeries, we recommend two adults accompany the child home. Follow any additional instructions given to you from your surgeon. Telephone instructions given to CHIKI HOLLAND and asked if any additional questions and then verbalized understanding. Patient advised to call surgeon office or pre surgery nurse liaison [phone] if any additional questions.
[2024-08-15] VITALS (10 sets, daily range): BP systolic 140–174; BP diastolic 57–94; PULSE 61–86; RESP 12–20; TEMP 36.2; O2SAT 93–100
--- NOTE | 2024-08-15 09:53 | WPDHPUPDATE1 ---
History and Physical Update Update Date/Time: 08/15/24 09:53 History and Physical has been reviewed, including an updated exam of the patient. There are NO changes in the patient's condition. Risks, benefits, and alternatives have been discussed and questions answered. Patient agrees to proceed with procedure.
[2024-08-15] MEDS: LACTATED RINGERS 1,000 ML 30 ML IV CONT (11:30)
[2024-08-15] MEDS: KETOROLAC 15 MG/ML VIAL (*BKC) IV PUSH (11:45)
[2024-08-15] MEDS: ACETAMINOPHEN 500 MG TABLET 1000 MG PO (11:45)
--- NOTE | 2024-08-15 11:47 | P.PNAN_ITS ---
Anes - Initial Pre Proc Eval Procedure: Operation Date: 08/15/24 13:00 Proposed Procedures p Laparoscopic Cholecystectomy - Nichelle Hull MD Date/Time: 08/15/24 11:47 Surgeon: Nichelle Hull MD Pre Op Diagnosis: chronic calculous cholecystitis Patient Data Age: 58 Gender: F Height: 1.7 m Weight: 117.2 kg Last Vital Signs Temp 36.2 C L 08/15/24 11:26 Pulse 86 08/15/24 11:26 Resp 18 08/15/24 11:26 BP 140/72 08/15/24 11:26 Pulse Ox 99 08/15/24 11:26 O2 Del Method Room Air 08/15/24 11:26 Allergies Allergy/AdvReac Type Severity Reaction Status Date / Time Iodinated Contrast Media Allergy Severe Hives, RASH Verified 08/15/24 11:23 amoxicillin Allergy Unknown Skin Verified 08/15/24 11:23 irritation iodine Allergy Unknown Skin Verified 08/15/24 11:23 irritation Eaqfnhx-OBE-MnL Reductase AdvReac Mild Muscle Pain Verified 08/15/24 11:23 Inhibitor Home Medications ?Medication ?Instructions ?Recorded ?Confirmed ?Type acetaminophen 500 mg tablet 500 mg PO Q6H PRN Pain, Mild 01/09/20 08/03/24 History (Tylenol Extra Strength) vilazodone 40 mg tablet (Viibryd) 40 mg PO DAILY 01/28/21 08/15/24 History cyclobenzaprine 10 mg tablet 5 mg (1/2 x 10 mg) PO TID PRN 02/21/23 08/03/24 Rx muscle spasm #30 tabs hydroxyzine HCl 25 mg tablet 25 mg PO QID PRN anxiety #120 tabs 09/27/23 08/03/24 Rx esomeprazole magnesium 20 mg 40 mg (2 x 20 mg) PO DAILY #90 caps 03/01/24 08/15/24 Rx capsule,delayed release (Nexium) meloxicam 15 mg tablet 15 mg PO DAILY #90 tabs 03/01/24 08/03/24 Rx cetirizine 10 mg tablet (Zyrtec) 10 mg PO DAILY PRN seasonal 05/22/24 08/03/24 History allergies pseudoephedrine HCl 30 mg tablet 30 mg PO DAILY PRN seasonal 05/22/24 08/03/24 History (Sudafed) allergies tramadol 50 mg tablet 100 mg PO DAILY 05/22/24 08/15/24 History famotidine 20 mg tablet 20 mg PO QHS #30 tabs 06/08/24 08/15/24 Rx aluminum hydrox-magnesium carb 160 2 tablet PO BID 07/18/24 08/15/24 History mg-105 mg chewable tablet (Gaviscon Extra Strength) Patient hx anesthesia problems: none Family hx anesthesia problems: none Results Review: All pre-operative results and documents have been reviewed as part of the pre- operative evaluation. ON LICENSE OF [facility] Past Medical History Medical History Chronic low back pain Irritable bowel syndrome with diarrhea Dyslipidemia Insomnia Intractable migraine without aura and without status migrainosus Vitamin D deficiency Anxiety GERD (gastroesophageal reflux disease) Fibromyalgia Aerophagia 03/2001 Surgical History Surgical History H/O total hysterectomy 2017 History of total left hip replacement 2018 History of total replacement of right hip 2009 Family History Family History Father Family history of pancreatic cancer, Onset Age: 82 Hypertension Family history of osteoarthritis Family history of coronary artery disease Mother Hypertension Patient's mother is in good health Family history of arthritis Social History Social History Smoking status: Never smoker Second hand tobacco smoke exposure: No Alcohol intake: never Substance use: never Substance use type: does not use Lack of Transportation: No Lack of Food: Never True Current Housing: I Have Housing Concerned About Future Housing: No Difficulty Paying Gas/Electric Bills: No Difficulty Paying for Meds: No Currently Unemployed: No Education: Bachelor's Degree Difficulty w/ Childcare or Family Care: No Living arrangements: with family Occupation/Education: retired Gender identity (if verbalized by the patient): Female Spiritual care concerns: No Agree to blood products: Yes Anes - Eval Final PreProcedure Day of Procedure 08/15/24 11:47 Patient weight: morbidly obese Heart: regular rate and rhythm Lungs: clear to auscultation Airway: Mallampati scale class II Neurological: alert and oriented Last oral intake: >/= 8 hours ASA classification: III Emergent: no Anesthetic plan: proceed Anesthesia type and monitoring: general ETT and standard monitoring Results Review: All pre-operative results and documents have been reviewed as part of the pre- operative evaluation. Informed Consent: The patient's anesthetic plan and its attendant risks and benefits were discussed with the patient/family/POA. Questions were solicited and answers provided to the satisfaction of the patient/family/POA.
[2024-08-15] MEDS: ceFAZolin 2 GM/D5W 50 ML 2 GM/50 ML BAG IVPB (12:58)
[2024-08-15] MEDS: BUPIVACAINE/EPINEPHRINE 0.5% 30 ML VIAL INFILTRATE (13:23)
--- NOTE | 2024-08-15 13:43 | P.OP_ITS ---
Procedure Note - Detailed Date of Procedure 08/15/24 Pre-op Diagnosis chronic calculous cholecystitis Post-op Diagnosis Same Procedure Performed Laparoscopic cholecystectomy Surgeon Nichelle Hull MD Anesthesia General Indications 58-year-old female presented to the office complaining of postprandial right upper quadrant abdominal pain associated with nausea and vomiting. Workup including imaging significant for cholecystitis, cholelithiasis. Findings Cholecystitis with cholelithiasis Description of Procedure The patient was taken to the operating room placed in the supine position. After adequate induction of general anesthesia, the patient was prepped and draped in normal sterile fashion. A time-out was then performed to verify the patient's identity as well as the procedure being performed. I then made a 5 mm incision in the infraumbilical region. Through this, a Veress needle was placed into the peritoneal cavity and CO2 gas was then insufflated. After adequate pneumoperitoneum was achieved, the Veress needle was removed and a 5 mm optiview trocar was placed through this incision under direct visualization. I then placed the laparoscope through this trocar site and under direct visualization placed a further 12 mm subxiphoid port as well as 2 additional 5 mm ports in the right upper abdomen. The gallbladder was then identified and was noted to be moderately inflamed and distended. I was able to place a grasper at the dome of the gallbladder and this was retracted anterior and cephalad up over the liver. A 2nd retractor was then placed at the infundibulum and retracted la terally, this allowed visualization of the triangle of Calot. I then was able to visualize the cystic duct in its entirety from its proximal insertion into the gallbladder, to its distal junction with the common hepatic/common bile duct junction. At this point, I carefully skeletonized the proximal cystic duct with the [place] dissector. I then clipped and transected the proximal cystic duct. Next I visualized the cystic artery. Again the artery was skeletonized, clipped, and transected. I then used the Bovie cautery to take down the peritoneal attachments of the gallbladder off the liver bed. Once the gallbladder specimen was completely detached, an endo-pouch was placed through the 12 mm port site. I then placed the gallbladder specimen into the Endo pouch and removed the endo-pouch from the 12 mm port site. The specimen will now be sent to pathology for further review. I then copiously irrigated the right upper quadrant. Some mild oozing was noted in the liver bed and this was controlled with the bovie cautery. Hemostasis was noted in the liver bed, the clips were noted to be in good position on both the cystic duct stump and the cystic artery stump. No other pathology was noted in the right upper quadrant. I then moved the laparoscope to the subxiphoid port. No iatrogenic injury or other pathology was noted in the lower abdomen. I then closed the 12 mm trocar site under direct visualization using the Kaleb cone and 0 Vicryl suture. At this point, the abdomen was desufflated and all ports removed. All port sites were then closed with 4.O Monocryl subcuticular sutures. Dermabond was placed on each incision. The patient tolerated the procedure well, was extubated in the operating room postoperative and will be transferred to the recovery room in stable condition Estimated Blood Loss 10 Drains No Packing No Pathology Yes Complications No immediate complications Condition Stable Disposition PACU [facility] Billing Surgery - Charge Forward: Surgery Billing
[2024-08-15] MEDS: fentaNYL CITRATE INJ (*CRX) 100 MCG/2 ML VIAL 25 MCG IV PUSH ×4 (14:13→14:26)
[2024-08-15] MEDS: HYDROmorphone HCL INJ (*CRX) 1 MG/ML SYR 0.5 MG IV PUSH ×4 (14:32→14:56)
[2024-08-15] MEDS: oxyCODONE HCL (*CRX) 5 MG TAB IR PO (15:25)
== END 2024-08-15 16:40 | disposition home or self-care (01) ==
PROVIDERS: PCP Family Medicine; Visit Provider Surgery
PROC: 0FT44ZZ Resection of Gallbladder, Percutaneous Endoscopic Approach (ICD-10-PCS; CPT 47562; principal; 2024-08-15 13:00)
DX: K80.10 Calculus of gallbladder with chronic cholecystitis without obstruction (principal); D13.5 Benign neoplasm of extrahepatic bile ducts; K21.9 Gastro-esophageal reflux disease without esophagitis; E78.5 Hyperlipidemia, unspecified; G47.00 Insomnia, unspecified; E55.9 Vitamin D deficiency, unspecified; K58.0 Irritable bowel syndrome with diarrhea; F41.9 Anxiety disorder, unspecified; M54.50 Low back pain, unspecified; G89.29 Other chronic pain; G43.919 Migraine, unspecified, intractable, without status migrainosus; E66.01 Morbid (severe) obesity due to excess calories; Z68.41 Body mass index [BMI] 40.0-44.9, adult; Z79.891 Long term (current) use of opiate analgesic; Z98.890 Other specified postprocedural states; Z80.0 Family history of malignant neoplasm of digestive organs; Z82.49 Family history of ischemic heart disease and other diseases of the circulatory system
CPT/HCPCS: 47562; 36415; 80076; 82150; 83690; 88304; 93005; A9270; J0690; J1100; J1171; J1596; J1885; J2250; J2270; J2405; J2704; J2710; J3010; J7030; J7120

== ENCOUNTER 2024-11-16 08:50 | Outpatient (CLI) | payer OTHER, SELFPAY ==
--- NOTE | ~2024-11-16 | MM_ITS ---
EXAMINATION: MM screening pinky BI w dahiana HISTORY: Screening TECHNIQUE: Craniocaudal and mediolateral oblique 3-D tomosynthesis images were obtained and synthetic 2-D images were generated. CAD analysis was submitted and interpreted. COMPARISON: Comparison to multiple prior studies sequentially, with oldest reviewed study dated 04/19. BREAST PARENCHYMAL COMPOSITION: Not Dense: The breasts are almost entirely fatty. FINDINGS: There is no evidence of suspicious mass, calcification, or architectural distortion to sugg est malignancy in either breast. There has been no suspicious interval change. IMPRESSION: 1. No mammographic evidence of malignancy. 2. Recommend routine screening mammography in one year. BI-RADS Category 1: Negative Reviewed, dictated and finalized at location A.
--- OUTSIDE RECORDS SUMMARY | 2024-11-16 09:03 | XMS_ITS | Patient Health Record ---
Author Organization [facility] [employer] Address [address] [place] [address] Care Team Providers Care Material Engineer Name Role Phone Riley Lyle Unavailable [phone] Migration, Provider Unavailable Unavailable Allergies Allergen (clinical drug ingredient) Drug/Non Drug Allergy documented on EMR Reaction Allergy Type Onset Date Status amoxicillin Amoxicillin Unknown Drug Allergy 03/14/2023 Ac tive Reason For Referral No Information Medications Medication SIG (Take, Route, Fr equency, Duration) Notes Start Date End Date Status Viibryd 40 MG 1 tablet with food O rally Once a day for 90 days 09/21/2023 Active Meloxicam 15 MG TAKE 1 TABLET BY MYCHAL TH EVERY DAY Oral for 90 Days Active traMADol HCl 50 MG TAKE 1 TABLET BY MYCHAL TH TWICE A DAY Oral for 90 Days Active Immunizations Vaccine Route Administration Date Status Comme nts Influenza virus vaccine, quadrivalent (IIV4), split virus, 0.25 mL dosage Unknown 04/03/2013 Administered Influenza virus vaccine, quadrivalent (IIV4), split virus, 0.25 mL dosage Unknown 05/12/2015 Administered MMR Unknown 03/14/2013 Administered Novel Atznofihx-[id number], preservative free Unknown 04/15/2016 Administered Novel Pzlwuzqyp-L8A8-53, preservative free Unknown 05/04/2017 Administered Novel Hrkyywwyo-D8Y9-97, preservative free Unknown 04/20/2018 Administered Novel Tvdzswylx-V9S8-40, preservative free Unknown 04/25/2019 Administered Pfizer Biontech Covid-19 Vac cine 2nd dose Unknown 09/19/2020 Administered Pfizer Biontech Covid-19 Vac cine 2nd dose Unknown 10/09/2020 Administered Pfizer Biontech Covid-19 Vac cine 2nd dose Unknown 07/21/2021 Administered Tdap Unknown 03/30/2013 Administered Tdap Unknown 04/20/2018 Administered Zoster Unknown 08/02/2016 Administered Social History Tobacco Use: Social History Observation Description Date Details (start date - stop date) Never Smoker NA - NA Sex Assigned At : Social History Observation Description Sex Assigned At Female Tobacco Control (Standard) Question Answer Notes Tobacco use: Nonsmoker Problems Problem Type SNOMED Code ICD Code Onset Dates Problem Status W/U Status Risk Notes Problem Moderate recurrent major depression (82420189) Major depressive disorder, recurrent, moderate (F33.1) 09/21/2023 Active confirmed Vital Signs Heart Rate 92 /min 05/21/2024 Height-cm 167.64 cm 05/21/2024 Blood pressure diastolic 78 mm Hg 05/21/2024 Weight-kg 115.21 kg 05/21/2024 Height 66.00 in 05/21/2024 Blood pressure systolic 140 mm Hg 05/21/2024 Weight 254 lbs 05/21/2024 BMI 40.99 kg/m2 05/21/2024 Encounters Encounter Location Date Provider Diagnosis [facility] [employer] [place] [address] [address] [facility] [address] [address] 05/21/2024 Riley Lyle Major depressive disorder, recurrent, moderate F33.1 [facility] [employer] [place] [address] [address] 2023 Provider Migration [facility] [employer] [address] [address] 12/25/2023 Provider Migration Assessments Encounter Date Diagnosis (ICD Code) Assessment Notes Treatment Notes Treatment Clinical Notes Section Notes 05/21/2024 Major depressive disorder, recurrent, moderate (ICD-10 - F33.1) Anxiety - Assessment: The patient reports that her anxiety is stable and not as bad as before. She has been able to handle stressful situations better, such as her 's financial decisions. - Plan: - Continue current medication, Valazodone 40 mg daily. - Monitor for any changes in anxiety levels and adjust treatment as needed. - Encourage the patient to continue using coping strategies and consider therapy if needed. Depression - Assessment: The patient's depression appears to be stable. She is currently on Valazodone 40 mg daily. - Plan: - Continue Valazodone 40 mg daily. - Monitor for any changes in mood and adjust treatment as needed. - Encourage the patient to engage in activities that promote mental well-being and consider therapy if needed. Weight Gain - Assessment: The patient reports gaining weight while her loses weight. She mentioned, I think every pound he loses, I gain too. - Plan: - Encourage the patient to adopt a healthy diet and exercise routine. - Monitor weight changes and consider referral to a mold blower or weight management program if needed. Marital Issues - Assessment: The patient reports ongoing marital issues, particularly related to her 's financial decisions and lack of communication. She mentioned her recently purchased a new Karen without consulting her, despite needing to pay back money. - Plan: - Encourage the patient to consider couples therapy or counseling to address these issues and improve communication within the marriage. Medication Refill - Assessment: The patient is due for a refill of her Valazodone 40 mg daily. - Plan: - Refill prescription for Valazodone 40 mg daily, with a 3-month supply to be sent to the patient's preferred pharmacy ([facility]). Follow-up - Plan: - Schedule a follow-up appointment in 6 months to monitor the patient's anxiety, depression, weight, and any other concerns that may arise. Mcc - Assessment: The patient mentioned that both she and her are retired earlier than planned. She retired for medical and mental reasons, while her retired due to not getting a promotion. - Plan: - Discuss financial planning and potential part-time work options if needed to address financial concerns. Plan Of Treatment No Information Insurance Providers Payer Name Payer Address Payer Phone Subscriber Number Group Number Insured Name Patient Relationship to Insured Coverage Start Date Coverage End Date [employer] [address] [place] [address] [id number] SARANYA HOLLAND Spouse - patient is the spouse of the insured Medical (General) History Medical History History ICD Code Problems: Fibromyalgia Generalized anxiety disorder Irritable bowel syndrome Migraine Moderate recurrent major depression Primary insomnia Vitamin D deficiency , Surgical History Surgery Date(Month/Year) Hysterectomy/revise vagina (28176) Other Tonsilectomy/adenoids 09/08/1971 Hysterectomy (98291) 06/04/2017 Left Hip replacement 2017 Right Hip replacement 2009
--- OUTSIDE RECORDS SUMMARY | 2024-11-16 09:03 | XMS_ITS | CONTINUITY OF CARE DOCUMENT ---
Author Name marcelo robertson Address Unknown Organization [facility] Address [address] [place] [address] Phone [phone] Care Team Providers Care Molder Name Role Phone Oliverio Pierson MD Unavailable DEANGELO VARGAS, CHUY Esquivel Unavailable INSURANCE PROVIDERS Payer name Policy type / Coverage type [place] red libertarian ID [facility] [id number] Other [id number] [facility] [id number] Other [id number]
--- OUTSIDE RECORDS SUMMARY | 2024-11-16 09:03 | XMS_ITS | Clinical Summary ---
Author Organization [facility] Address [address] [address] Care Team Providers Care Cigarette Catcher Name Role Phone Les Bryson MD Primary Care Provider [phone] Source Comments [facility],non-owned Affiliates and Associated Physician Practices is amultiple site organization consisting of ambulatory clinics and hospital sitesin [place], [place], [place] and [place]. This disclosure is being madepursuant to the Care Everywhere program and may not contain all information available regarding this patient. Last updated 18.[facility] Confer Social History Tobacco Use Types Packs/Day Years Used Date Smoking Tobacco: Never Assessed Sex and Gender Information Value Date Recorded Sex Assigned at Not on file Gender Identity Not on file Sexual Orientation Not on file Last Filed Vital Signs Vital Sign Reading Time Taken Comments Blood Pressure 122/70 11/29/2016 4:44 PM CDT Pulse 74 11/29/2016 4:44 PM CDT Temperature 36.7 C (98.1 F) 11/29/2016 4:44 PM CDT Respiratory Rate 18 11/29/2016 4:44 PM CDT Oxygen Saturation 98% 11/29/2016 4:44 PM CDT Inhaled Oxygen Concentration - - Weight 90.7 kg (200 lb) 11/29/2016 4:44 PM CDT Height 170.2 cm (5' 7 ) 11/29/2016 4:44 PM CDT Body Mass Index 31.32 11/29/2016 4:44 PM CDT Plan of Treatment Health Maintenance Due Date Last Done Comments COLOGUARD (AGES 45-75) - COL ON CA SCREENING 1963 COLON MONITORING 1963 COLONOSCOPY - COLON CA SCREENING 1963 CT COLONOGRAPHY - COLON CA SCREENING 1963 Colorectal Cancer Screening 1963 FIT - COLON CA SCREENING 1963 FLEX SIG - COLON CA SCREENING 1963 LIPID TESTING 1963 MAMMOGRAM 1963 PAP SMEAR 1963 HIV SCREENING 12/23/1978 HEPATITIS C SCREENING 12/19/1981 DTAP/TDAP/TD VACCINES (1 - Tdap) 12/23/1982 PNEUMOCOCCAL VACCINE 50+ (1 of 1 - PCV) 12/23/2013 ZOSTER VACCINE (1 of 2) 12/23/2013 COVID-19 VACCINE (1 - 2023-2 5 season) 2024 DEPRESSION SCREENING 08/08/2024 INFLUENZA VACCINE (Season Ended) 2025 Respiratory Syncytial Virus (RSV) Vaccine Pt: or over 60 yrs (1 - 1-dose 75+ series) 12/23/2038 HEPATITIS B VACCINE Aged Out No longe r eligible based on patient's age to complete this topic HIB VACCINE Aged Out No longer eligi ble based on patient's age to complete this topic HPV VACCINE Aged Out No longer eligi ble based on patient's age to complete this topic MENINGOCOCCAL (Group B) VACC INE SHARED DECISION-MAKING Aged Out No longer eligibl e based on patient's age to complete this topic MENINGOCOCCAL GROUPS A/C/Y/W VACCINE Aged Out No longer eligible b ased on patient's age to complete this topic Care Teams Cigarette Catcher Relationship Specialty Start Date End Date Les Bryson MD [address] [place] [address] PCP - General Family Medicine 11/29/16
--- OUTSIDE RECORDS SUMMARY | 2024-11-16 09:03 | XMS_ITS | Clinical Summary ---
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 Gender Identity Not on file Sexual Orientation Not on file Plan of Treatment Health Maintenance Due Date Last Done Comments Hepatitis C Virus (HCV) Screening 1965 TdaP Immunization 1963 Pap Smear 12/23/1984 Cervical Cancer Screening (CCS) 12/23/1993 HPV/Cotest 12/23/1993 Colonoscopy 12/23/2008 Colorectal Cancer Screening 12/23/2008 Cologuard 12/23/2013 Immunochemical Fecal Occult Blood 12/23/2013 Mammogram 12/23/2013 Pneumococcal Immunization (5 0+ years) (1 of 1 - PCV) 12/23/2013 Zoster Immunization (1 of 2) 12/23/2013 Influenza Immunization (#1) 2024 SARS-COV-2 Immunization ( - 2023-25 season) 2024 Respiratory Syncytial Virus (RSV) Immunization (Adult) (1 - 1-dose 75+ series) 12/23/2038 Hepatitis B Immunization Aged Out No longer eligible based on patient's age to complete this topic Meningococcal Immunization (ACWY) Aged Out No longer eligible based on patient's age to complete this topic Pneumococcal Immunization Combined Aged Out No longer eligible based on patient's age to complete this topic Rotavirus Immunization Aged Out No lo nger eligible based on patient's age to complete this topic Care Teams Right Of Way Manager Relationship Specialty Start Date End Date Sarah Zheng MD PCP - General Family Medicine 10/10/17
--- OUTSIDE RECORDS SUMMARY | 2024-11-16 09:03 | XMS_ITS | Data Portability ---
Author Organization [place] [facility] [place], Main Office Address [address] [place] [address] Care Team Providers Care Trans Router Name Role Phone KAREN HOLT Primary Care Provider KAREN OHLT Referring Provider Assessment Encounter Date Assessment Date Assessment LastModified by Organization Details LastModified Time 09/23/2023 09/23/2023 HPI: Patient is here for a 5 year routine x-ray surveillance of her left total hip. She is now 6 years out, her left hip was done in 2018. She is having no symptoms or complaints. She is very happy with both of her hip replacements. The right hip was done in 2009 by as well. Physical exam: 57-year-old female she is 5 ft 6 247 lb her BMI is 40. She has gained quite a bit of weight since we see her last. She is walking very well today without limp. She has excellent range of motion of the left hip without discomfort. Impression: Patient is now 6 years out from left total hip arthroplasty. X-rays of excellent. She is happy with her results. She can follow-up in 5 years routine x-rays her balance of her hips or sooner if she has problems. Long-term risk of infection was discussed. [email or web address] Not available 09/23/2023 09:26:39 Plan of Treatment Reminders Order Date Submit Date Provider Last Modified By Organization Details Last Modified Time Details Appointments None recorded. Lab None recorded. Referral None recorded. Procedures None recorded. Surgeries None recorded. Imaging XR, hip + pelvis, unilateral 2023 024 [email or web address] [facility] Gus Mccormick, [address], [place], [address], 4 13:28:07 Medication Orders None recorded. Patient TargetsNo targets recorded. Patient InstructionsNo instructions recorded. Reason for Referral None Reported. Results Created Date Observation Date Name Description Value Unit Range Abnormal Flag Note LastModifiedBy Organization Detail LastModifiedTime 09/23/19 24 XR, hip + pelvi s, unila teral No observ ation record ed. [email or web address] [facility] [place] [address], [place], [address], 09/23/2023 09:25:21 Result Notes None recorded. 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 Procedures Surgical History Date Name Laterality Status Provider Name and Address Organization Details Recorded Time total replacement of hip completed KEITH Justin [place] - [employer] 09/23/2023 09:07:40 Hysterectomy completed KEITH Justin CA - [employer] 09/23/2023 09:07:50 Imaging Results Imaging Date Name Status LastModified by Organiz ation Details LastModified Time 09/23/2023 XR, hip + pelvis, unilateral completed [email or web address] [facility] [place] [address], [place], [address], 09/23/2023 09:25:21 Procedure Notes None recorded. Medical Equipment None Reported. Allergies Allergen ID Allergen Name Allergen Category Reaction Reaction Severity Criticality Documentation Date Start Date Code Code System Note Provider Name and Address Organization Details Recorded Time 10469 amoxicill in medicatio n Not available Not available Not available 10/06/2022 723 RxNorm Not Available On license of [facility] 3 06:09:31 Medications Name Sig Start Date Stop Date Status Note LastModified by Organization Details LastModified Time diclofenac 75 mg-misopros felicitas 200 mcg tablet,imme diate,delay ed release TK 1 T PO BID 09/25 completed Not Available Not Available Not Available cyclobenzap rine 10 mg tablet TAKE HALF A TAB 3 TIMES A DAY NEEDED FOR MUSCLE SPASM 09/23 completed Not Available Not Available Not Available amoxicillin 500 mg capsule 09/25 completed Not Available Not Available Not Available clindamycin HCl 300 mg capsule TAKE 2 CAPSULES BY MOUTH ONE HOUR BEFORE DENTAL APPOINTME NT 09/23 completed Not Available Not Available Not Available trazodone 50 mg tablet TK 4 TS PO QD HS 09/23 completed Not Available Not Available Not Available sumatriptan 100 mg tablet TK 1 T PO AT ONSET OF MIGRAINE 09/25 completed Not Available Not Available Not Available hydrocodone 5 mg-acetamin ophen 325 mg tablet TK 1 T PO Q 3 H NEEDED FOR PAIN RATED 5 OR LESS 09/25 completed Not Available Not Available Not Available ondansetron HCl 8 mg tablet 09/23 completed Not Available Not Available Not Available meloxicam 15 mg tablet TAKE 1 TABLET BY MOUTH EVERY DAY active Not Available Not Available No t Available ciprofloxac in 500 mg tablet TK 1 T PO BID 09/25 completed Not Available Not Available Not Available sulfamethox azole 800 mg-trimetho prim 160 mg tablet TK 1 T PO BID FOR 5 DAYS 09/25 completed Not Available Not Available Not Available tramadol 50 mg tablet 50 MG ORALLY TWICE A DAY active Not Available Not Available No t Available triamcinolo ne acetonide 0.1 % topical cream APPLY TOPICALLY 3 TIMES A DAY active Not Available Not Available No t Available meloxicam 7.5 mg tablet 09/23 completed Not Available Not Available Not Available oxycodone-a cetaminophe n 5 mg-325 mg tablet TK 1 TO 2 TS PO Q 4 H PRN P 09/25 completed Not Available Not Available Not Available amoxicillin 875 mg tablet TK 1 T PO BID FOR 10 DAYS 09/25 completed Not Available Not Available Not Available alprazolam 0.25 mg tablet 09/23 completed Not Available Not Available Not Available prednisolon e acetate 1 % eye drops,suspe nsion INSTILL 1 DROP INTO BOTH EYES THREE TIMES A DAY SHAKE WELL active Not Available Not Available No t Available trazodone 100 mg tablet TAKE 2 TABLETS BY MOUTH AT BEDTIME AND 1/2 TAB MORE NEEDED active Not Available Not Available No t Available dicyclomine 20 mg tablet 09/23 completed Not Available Not Available Not Available erythromyci n 5 mg/gram (0.5 %) eye ointment APPLY INTO RIGHT EYE TWICE A DAY FOR 7 DAYS active Not Available Not Available No t Available hydroxyzine HCl 25 mg tablet TAKE ONE TABLET (25 MG) BY MOUTH FOUR TIMES DAILY NEEDED FOR ANXIETY active Not Available Not Available No t Available mupirocin 2 % topical ointment BART IEN UTD BID FOR 5 DAYS 09/25 completed Not Available Not Available Not Available methylpredn isolone 4 mg tablets in a dose pack TAKE 6 TABLETS ON DAY 1 DIRECTED ON PACKAGE AND DECREASE BY 1 TAB EACH DAY FOR A TOTAL OF 6 DAYS 09/23 completed Not Available Not Available Not Available doxycycline hyclate 100 mg tablet TAKE 1 TABLET BY MOUTH EVERY DAY WITH FOOD active Not Available Not Available No t Available clobetasol 0.05 % lotion APPLY TID 09/25 completed Not Available Not Available Not Available nitrofurant oin monohydrate /macrocryst als 100 mg capsule 09/23 completed Not Available Not Available Not Available Boostrix Tdap 2.5 Lf unit-8 mcg-5 Lf/0.5 mL intramuscul ar suspension active Not Available Not Available N ot Available pregabalin 75 mg capsule 09/23 completed Not Available Not Available Not Available Zostavax (PF) 19,400 unit/0.65 mL subcutaneou s suspension ADM 0.65ML SC UTD 09/25 completed Not Available Not Available Not Available cholecalcif jo (vitamin D3) 1,250 mcg (50,000 unit) capsule 09/25 completed Not Available Not Available Not Available BD Ultra-Fine Hoa Pen Needle 32 gauge x 5/32 U UTD 09/23 completed Not Available Not Available Not Available Lo Loestrin Fe 1 mg-10 mcg (24)/10 mcg (2) tablet TK 1 T PO QD 09/25 completed Not Available Not Available Not Available vilazodone 40 mg tablet TAKE 1 TABLET BY MOUTH EVERY DAY IN THE EVENING FOR 90 DAYS active Not Available Not Available No t Available Eliquis 2.5 mg tablet TK 1 T PO Q 12 H INTERVAL 09/25 completed Not Available Not Available Not Available Saxenda 3 mg/0.5 mL (18 mg/3 mL) subcutaneou s pen injector 09/23 completed Not Available Not Available Not Available Fluarix Quad (PF) 60 mcg (15 mcg x 4)/0.5 mL IM syringe ADM 0.5ML IM UTD 09/25 completed Not Available Not Available Not Available Flulaval Quad 60 mcg (15 mcg x 4)/0.5 mL IM suspension ADM 0.5ML IM UTD 09/25 completed Not Available Not Available Not Available Fluarix Quad (PF) 60 mcg (15 mcg x 4)/0.5 mL IM syringe ADM 0.5ML IM UTD 09/25 completed Not Available Not Available Not Available Fluzone Quad (PF) 60 mcg(15 mcgx4)/0.5 mL intramuscul ar syringe active Not Available Not Available N ot Available Fluarix Quad (PF) 60 mcg (15 mcg x 4)/0.5 mL IM syringe ADM 0.5ML IM UTD active Not Available Not Available No t Available Vitals Date Recorded Body height Body mass index (BMI) Body weight Provider Name and Address Organization Details Last Updated DateTime 09/23/2023 167.64 cm 39.9 kg/m2 165514.32 g KEITH Justin [facility] [employer] 09/23/2023 09:10:32 Social History Question Answer Notes LastModified by Organizat ion Details LastModified Time Tobacco Smoking Status Never Smoker KEITH Justin null, [facility] [employer] 09/23/2023 09:07:20 What Is Your Level Of Alcohol Consumption? None [email or web address] Information not available 09/23/2023 Sex: Unknown Functional Status None recorded. Mental Status None recorded. Family History Relationship Description Onset Age of this Age Resolved Age Notes LastModified by Organization Details LastModified Time Father Heart disease [email or web address] Not available 2023 09:06:45 Father Family history of malignant neoplasm procre atic [email or web address] Not available 09/23/2023 09:07:03 Father Blood coagulation disorder Not available 2023 09:07:14 Medical History Condition Response ARTHRITIS Y Gynecological HistoryNo gynecological history recorded. Obstetrics History GPAL:G 0 P 0 0 0 0 Past Encounters Encounter ID Performer Location Encounter Start Date Encounter Closed Date Diagnosis/Indication Diagnosis SNOMED-CT Code Diagnosis ICD10 Code Diagnosis Note [id number] KIERRA Booker [facility] [place] [address] [place] [address] 09/23/2023 08:49:04 09/23/2023 09:40:47 History of total replacement of left hip joint 4680548803 816137 Z96.642 Health Concerns Section Related Observation LastModified by Organization Detai ls LastModified Time None Recorded Concern Status LastModified by Organization Details LastModified Time None Recorded Advance Directives Directive None Recorded Payers Encounter Date Sequence Insurance Name Policy Number Policy Gay Covered Member ID Agy Member ID Guarantor Name 09/23/2023 1 [employer] (POS) [id number] Thomas Henderson [id number] Chrissy Henderson OBGyn Episode No OBEpisode recorded.
== END 2024-11-16 08:51 | disposition home or self-care (01) ==
PROVIDERS: PCP Family Medicine; Visit Provider Obstetrics & Gynecology
DX: Z12.31 Encounter for screening mammogram for malignant neoplasm of breast (principal)
CPT/HCPCS: 77063; 77067